=== PATIENT | female | born 1945 | race Caucasian/White ===

== ENCOUNTER 2017-11-12 07:30 | Day surgery (SDC) | payer OTHER ==
--- NOTE | 2017-11-13 14:58 | PDGENHP ---
[facility] Patient Name: JESSICA PEDERSEN Rpt#: [id number] Unit Number: [id number] Attending: Tiffany Hager MD Adm Date: 11/12/17 History Physical Chief Complaint: RLE ULCER History of Present Illness: SEE PREVIOUS CONSULT Pertinent Past, Social, Family History: NON SMOKER. Relevant Physical Exam: SMALL RT ANKEL ULCER. NO PAIN Cardiorespiratory Assessment: RRR,CTA Tiffany Hager MD 11/12/17824 <Electronically signed by Tiffany Hager MD> 1 T: ANDREW 11/12/17821 CC: Tiffany Hager MD; NONE *PRIMARY CARE PHYS ONLY*
== END 2017-11-12 11:20 | disposition home or self-care (01) ==
LOC: FIMAGING 07:30
PROVIDERS: ATTEND Radiology Diagnostic Radiology
PROC: 065P3ZZ Destruction of Right Saphenous Vein, Percutaneous Approach (ICD-10-PCS; principal; 2017-11-12 10:18)
DX: I83.013 Varicose veins of right lower extremity with ulcer of ankle (principal)